=== PATIENT | female | born 1985 | race African-American/Black ===

== ENCOUNTER 2018-08-02 13:37 | Inpatient (IN) | payer OTHER ==
[2018-08-02] MEDS ORDERED: NS 1,000 ML IV ONE (13:54)
[2018-08-02] MEDS ORDERED: ONDANSETRON 4 MG/2 ML VIAL IVP ONE ×2 (13:54→15:49)
--- NOTE | 2018-08-02 13:55 | EDPHY ---
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 She remembers waking up on her hotel floor today. No incontinence. No oral trauma. No complaints of pain or discomfort beyond left lower quadrant abdominal pain. Denies vaginal bleeding or discharge. She does note decreased urine output. The last urinated 1 day ago. No left upper quadrant or left flank pain. No seasonal influenza vaccination PRIMARY CARE PROVIDER:In [place] REVIEW OF SYSTEMS: 10 systems reviewed and negative with the exception of the elements mentioned in the history of present illness PAST MEDICAL & SURGICAL HISTORY: no seasonal influenza vaccination. TAB 1 approximately 7-8 weeks based on LMP. SOCIAL HISTORY: Nonsmoker. PHYSICAL EXAM (Prior to examination, patient consented to physical exam, hands were washed and my usual and customary physical exam procedures followed) 1) GENERAL: Well-developed, well-nourished, alert and oriented. Appears anxious. She is retching. 2) HEAD: Normocephalic, atraumatic 3) HEENT: Pupils equal, round, reactive to light bilaterally. Sclera anicteric. Nasopharynx, oropharynx, clear, no lesions. Dry mucous membranes. 4) NECK: Full range of motion, no meningeal signs. 5) LUNGS: Clear auscultation bilaterally, no wheezes, no rhonchi, no retractions. 6) HEART: Regular rate and rhythm, no murmur, no heave, no gallop. 7) ABDOMEN: No guarding, tender to palpation left lower quadrant, negative peritoneal sign, no left upper quadrant pain, no splenomegaly, no left flank pain. 8) MUSCULOSKELETAL: Moving all extremities, no focal areas of tenderness, no obvious trauma. No peripheral edema or discoloration. 9) BACK: No CVA tenderness, no midline vertebral tenderness, no fluctuance, no step-off, no obvious trauma, no visual or palpable abnormality. 10) SKIN: No rash, no petechiae. 11) Psychiatric: Patient is oriented X 3, there is no agitation. DIFFERENTIAL DIAGNOSIS: In no particular order including but not limited to ectopic , hyperemesis gravidarum, threatened - Medical/Surgical History Hx Asthma: No Hx Chronic Respiratory Disease: No Hx Diabetes: No Hx Cardiac Disease: No Hx Renal Disease: No Hx Cirrhosis: No Hx Alcoholism: No Hx HIV/AIDS: No Hx Splenectomy or Spleen Trauma: No Other PMH: none - Social History Smoking Status: Former smoker Constitutional: Initial Vital Signs Temperature (C) 37 C 08/02/18 13:44 Heart Rate 89 08/02/18 13:44 Respiratory Rate 18 08/02/18 13:44 Blood Pressure 134/84 H 08/02/18 13:44 O2 Sat (%) 96 08/02/18 13:44 O2 Delivery Mode Room Air Allergies/Adverse Reactions: No Known Allergies Allergy (Verified 08/02/18 15:21) Home Medications: Medication Instructions Recorded NK [No Known Home Meds] 08/02/18 Medical Decision Making - Diagnostics Imaging Results: Imaging Impressions Obstetrics Ultrasound 08/02/18 13:54 Impression: Single living intrauterine gestation with estimated gestational age of 8 weeks 1 day. Findings discussed with Elmer Rowe 08/02/2018 at 15:01. Images reviewed myself ED Course/Re-evaluation: 3:35 p.m.: Patient was re-evaluated with serial exams. Has she has received 1500 cc of normal saline as well as 4 mg of Zofran. She has been unable provide urine. She complains of continued nausea, dizziness, lightheadedness. She and I discussed outpatient management. She prefers to be admitted noting that she does not feel safe going back to her hotel where she is by herself. Care of patient under supervision of secondary supervising physician Dr Olayinka Yu with whom I discussed case. 3:44 p.m.: Consultation with Dr Елена QUEZADA who will admit patient to mom baby floor for hyperemesis gravidarum. - Data Points Laboratory Results: Laboratory Results 08/02/18 14:28 08/02/18 14:28 08/02/18 08/02/18 08/02/18 14:28 14: 14:00 WBC 6.48 10^3/uL 10^3/uL (3.80-9.50) RBC 4.38 10^6/uL 10^6/uL (4.18-5.33) Hgb 13.7 g/dL g/dL (12.6-16.3) Hct 38.0 % % (38.0-47.0) MCV 86.8 fL fL (81.5-99.8) MCH 31.3 pg pg (27.9-34.1) MCHC 36.1 g/dL g/dL (32.4-36.7) RDW 12.1 % % (11.5-15.2) Plt Count 261 10^3/uL 10^3/uL (150-400) MPV 9.4 fL fL (8.7-11.7) Neut % (Auto) 81.0 % H % (39.3-74.2) Lymph % (Auto) 12.0 % L % (15.0-45.0) [place] % (Auto) 5.9 % % (4.5-13.0) Eos % (Auto) 0.2 % L % (0.6-7.6) Baso % (Auto) 0.6 % % (0.3-1.7) Nucleat RBC Rel Count 0.0 % % (0.0-0.2) Absolute Neuts (auto) 5.25 10^3/uL 10^3/uL (1.70-6.50) Absolute Lymphs (auto) 0.78 10^3/uL L 10^3/uL (1.00-3.00) Absolute Monos (auto) 0.38 10^3/uL 10^3/uL (0.30-0.80) Absolute Eos (auto) 0.01 10^3/uL L 10^3/uL (0.03-0.40) Absolute Basos (auto) 0.04 10^3/uL 10^3/uL (0.02-0.10) Absolute Nucleated RBC 0.00 10^3/uL 10^3/uL (0-0.01) Immature Gran % 0.3 % % (0.0-1.1) Immature Gran # 0.02 10^3/uL 10^3/uL (0.00-0.10) Sodium 140 mEq/L mEq/L (135-145) Potassium 3.2 mEq/L L mEq/L (3.5-5.2) Chloride 101 mEq/L mEq/L (97-110) Carbon Dioxide 24 mEq/l mEq/l (22-31) Anion Gap 15 mEq/L H mEq/L (6-14) BUN 14 mg/dL mg/dL (7-23) Creatinine 0.4 mg/dL L mg/dL (0.6-1.0) Estimated GFR > 60 Glucose 85 mg/dL mg/dL (70-100) Calcium 9.9 mg/dL mg/dL (8.5-10.4) Total Bilirubin 1.3 mg/dL mg/dL (0.1-1.4) Conjugated Bilirubin 0.4 mg/dL mg/dL (0.0-0.5) Unconjugated Bilirubin 0.9 mg/dL mg/dL (0.0-1.1) AST 28 IU/L IU/L (14-46) ALT 34 IU/L IU/L (9-52) Alkaline Phosphatase 70 IU/L IU/L (38-126) Total Protein 8.6 g/dL H g/dL (6.3-8.2) Albumin 5.0 g/dL g/dL (3.5-5.0) Lipase 16 IU/L L IU/L (23-300) Beta HCG, Quant 665043.00 mIU/mL H mIU/mL (0.00-4.83) Nasal Influenza A PCR NEGATIVE FOR FLU A (NEGATIVE) Nasal Influenza B PCR NEGATIVE FOR FLU B (NEGATIVE) Medications Given: Discontinued Medications Al Hydroxide/Mg Hydroxide (Maalox Susp) 30 ml PO ONCE ONE Stop: 08/02/18 15:46 Last Admin: 08/02/18 16:14 Dose: 30 ml Hyoscyamine Sulfate (Levsin, Hyomax-Sl) 0.25 mg PO ONCE ONE Stop: 08/02/18 15:46 Last Admin: 08/02/18 16:14 Dose: 0.25 mg Sodium Chloride (Ns) 1,000 mls @ 0 mls/hr IV ONCE ONE PRN Reason: Wide Open Stop: 08/02/18 13:55 Last Admin: 08/02/18 14:27 Dose: 1,000 mls Lidocaine (Lidocaine 2% Viscous) 15 ml PO ONCE ONE Stop: 08/02/18 15:46 Last Admin: 08/02/18 16:14 Dose: 15 ml Ondansetron HCl (Zofran) 4 mg IVP EDNOW ONE Stop: 08/02/18 13:55 Last Admin: 08/02/18 14:27 Dose: 4 mg Ondansetron HCl (Zofran) 4 mg IVP EDNOW ONE Stop: 08/02/18 15:50 Last Admin: 08/02/18 15:50 Dose: 4 mg Departure - Departure Disposition: [facility] Clinical Impression: Intractable nausea and vomiting Condition: Fair
[2018-08-02 14:39] LABS: PLATELET COUNT 261 10^3/uL (150-400)
--- NOTE | 2018-08-02 14:46 | CPEKG ---
Test Reason : OPEN Blood Pressure : / mmHG Vent. Rate : 085 BPM Atrial Rate : 085 BPM P-R Int : 160 ms QRS Dur : 104 ms QT Int : 379 ms P-R-T Axes : 077 057 -64 degrees QTc Int : 451 ms Sinus rhythm Nonspecific T abnormalities, inferior leads Confirmed by Leeanna Farley ([id number]) on 08/02/2018 2:46:06 PM Referred By: LEEANNA FARLEY Confirmed By:Leeanna Farley
[2018-08-02] MEDS ORDERED: HYOSCYAMINE SULFATE 0.125 MG TAB PO ONE (15:45)
[2018-08-02] MEDS ORDERED: LIDOCAINE 2% VISCOUS 15 ML UDCUP PO ONE (15:45)
[2018-08-02] MEDS ORDERED: MAG HYDROX/AL HYDROX/SIMETH 30 ML UDCUP PO ONE (15:45)
[2018-08-02] MEDS ORDERED: ONDANSETRON 4 MG/2 ML VIAL ONE (15:47)
[2018-08-02] MEDS ORDERED: PROMETHAZINE HCL 25 MG/ML INJ IVP ONE (19:04)
[2018-08-02] MEDS ORDERED: POTASSIUM Cl (KCl) 20 MEQ in LR 1,000 ML IV SCH (19:30)
[2018-08-02] MEDS: LR 1,000 ML IV SCH (19:44)
[2018-08-02] MEDS: PROMETHAZINE HCL 25 MG/ML INJ IVP PRN (19:44)
--- NOTE | 2018-08-02 20:28 | GHP ---
[f rep st] PREOP HISTORY AND PHYSICAL DATE OF ADMISSION: 08/02/2018 HISTORY UPON ADMISSION: The patient is a 33-year-old G5, P3, A1 at 8 weeks 1 day who presented to [facility] emergency room with persistent nausea and vomiting. The patient has had IV fluids and Phenergan an d continues to be persistent with the vomiting and is admitted for IV hydration and medication throug h the night. The patient's symptoms dramatically [place] . 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 The patient has be en staying at a hotel and has felt lightheaded and dizzy with near-syncope prior to coming to the [facility] room. Patient reports that she tried some pot from her sister to try to help with the nausea but felt it was mainly CBD and did not help at all. PAST MEDICAL HISTORY: Negative except for history of an ulcer years ago, and patient reports evaluat ions with an EGD in November of 2017, and she was told the ulcer had resolved. It was not H pylori conne cted. PAST SURGICAL HISTORY: Laparoscopy approximately 8 years ago at which time the patient was told she had endometriosis. D and C in 2016. PAST OBSTETRIC HISTORY: SVDs at term for 3 viable males, now ages 15, 13, and 6. Missed AB at 12 we eks in 2016. ALLERGIES: Patient has no known drug allergies. CURRENT MEDICATIONS: Patient was taking vitamins but has not had anything for the last 3 da ys due to the significant nausea and vomiting. SOCIAL HISTORY: The patient states that her kids are currently with her "until I get home." The patient is a former smoker and reports stopping 2 months ago. Reports having used 1 pack per da y. Patient denies alcohol or other drug use other than the recent marijuana. Patient states she did not smoke it, however, used a water soaked version. 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 Here from [place]. FAMILY HISTORY: Noncontributory. LABORATORY: Current laboratory evaluation shows a normal white count of 6.5, hemoglobin 13, hematocr it 38, platelet count 261,000. Chemistry reveals normal sodium, potassium slightly low at 3.2, creat inine 0.4, total protein 8.6, lipase 16. HCG level 108,000. Negative nasal flu A and B. no urine c ollected yet for urinalysis and culture or urine drug screen. IMAGING: Ultrasound performed that showed a normal uterus with a single intrauterine at 8 weeks 1 day with normal cardiac activity. Bilaterally, ovaries appear normal with possible cor pus luteum cyst on the left ovary, 2.6 cm. PHYSICAL EXAMINATION: GENERAL: Upon admission, the patient is a thin black female and curled up in bed and writhing with waves of nausea and throwing up bile. VITAL SIGNS: Blood pressure is 120s to 130s over 70s to 80s. Heart rate 89 to 95. Pulse ox is normal on room air. Temperature 37.3. LUNG S: Clear to auscultation bilaterally. CARDIOVASCULAR: Regular rate and rhythm. ABDOMEN: Soft and nontender. SKIN: Patient has tattoos but no other obvious scars or injuries. EXTREMITIES: No low er extremity edema. PELVIC: Deferred. ASSESSMENT: Intrauterine at 8 weeks with nausea and vomiting. Little improvement with IV fluids and Zofran in the emergency room. Potassium slightly low. PLAN: IV hydrate through the night and use Phenergan and Zofran for nausea. I advised the patient t hat the altitude and dryness of our climate are probably adding to her symptoms. The patient states that she doubts that she will stay here to continue and work as she feels so affected by the pregnanc y symptoms and will likely go back to [place]. [facility] reassess the potassium. /[id number]/MODL
[2018-08-03] MEDS: ONDANSETRON 4 MG/2 ML VIAL IVP PRN ×4 (00:36→18:28)
[2018-08-03] MEDS: LR 1,000 ML IV SCH ×2 (01:39→08:32)
[2018-08-03] MEDS: PROMETHAZINE HCL 25 MG/ML INJ IVP PRN ×2 (07:30→13:52)
--- NOTE | 2018-08-03 10:50 | SOAPPROG ---
SOAP Progress Note Assessment/Plan: Assessment: 33 y/o @ 8 2/7 weeks with n/v of and hypokalemia - not improved Plan: Will switch IVFs to D5 with 20meq of KCL since low potassium and pt is not able to keep down water Will repeat BMP in am 3/2 to check potassium Will add first line agents Vit B6 and Vistaril orally q6 hrs prn n/v and see if there is an improvement Cont IV Phenergan for now since some relief After nausea improved this morning, discussed trying ice chips to see if elisabeth po Will reassess this afternoon 08/03/18 11:09 Subjective: Pt seen and examined. She is not feeling much better. She last vomited around 0200 this am and had some water and was not able to keep it done around 0400 this am. She was nauseated this am, and has some relief with Phenergan that was given to her. Notes some mild cramping. She denies any pain, LOF or VB/ spotting. 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 Objective: Vital Signs Temp Pulse Resp BP Pulse Ox 36.4 C 82 14 97/58 L 97 08/03/18 07:44 08/03/18 07:44 08/03/18 07:44 08/03/18 07:44 08/03/18 07:44 Laboratory Results 08/03/18 05:50 08/02/18 08/03/18 08/04/18 05:59 05:59 05:59 Intake Total 1500 Balance 1500 Physical Exam - Physical Exam General Appearance: WD/WN, alert, no apparent distress Respiratory: lungs clear, normal breath sounds Cardiac/Chest: regular rate, rhythm Abdomen: normal bowel sounds, non-tender, soft Pelvic Exam: deferred Skin: normal color, warm/dry Neuro/Psych: alert, normal mood/affect, oriented x 3 ICD10 Worksheet Patient Problems: Problems Problem Status Onset Intractable nausea and vomiting Acute
[2018-08-03] MEDS ORDERED: D5W NS W/ 20 KCl/L 1,000 ML IV SCH (11:00)
[2018-08-03] MEDS: hydrOXYzine HCL 25 MG TAB PO PRN (12:19)
[2018-08-03] MEDS: PYRIDOXINE HCL 25 MG TAB PO PRN (12:19)
[2018-08-03] MEDS ORDERED: METOCLOPRAMIDE 10 MG/2 ML VIAL IVP SCH (15:30)
--- NOTE | 2018-08-03 16:03 | PDMN ---
Medical Necessity Medical necessity: MCG: M195 hyperemesis Gravidarum A-1 day: pt present with vomiting unable to keep PO down, status changed to INPT 08/03/18 for persistent N/V req further monitoring and tx > 2MN. pt is 8 weeks .
[2018-08-03] MEDS: METOCLOPRAMIDE 10 MG/2 ML VIAL IVP SCH (17:49)
[2018-08-03] MEDS: FAMOTIDINE 20 MG/NACL 50 ML IV SCH (18:10)
[2018-08-03] MEDS: D5W NS 1,000 ML IV SCH (19:23)
[2018-08-04] MEDS: METOCLOPRAMIDE 10 MG/2 ML VIAL IVP SCH ×3 (00:04→12:06)
[2018-08-04] MEDS: ONDANSETRON 4 MG/2 ML VIAL IVP PRN ×2 (02:21→18:15)
[2018-08-04] MEDS: D5W NS 1,000 ML IV SCH ×2 (02:21→10:58)
[2018-08-04] MEDS: FAMOTIDINE 20 MG/NACL 50 ML IV SCH (09:19)
--- NOTE | 2018-08-04 12:27 | SOAPPROG ---
SOAP Progress Note Assessment/Plan: Assessment: 33 y/o @ 8 2/7 weeks admitted with hyperemesis. Plan: We will advance to clear liquids for now and full liquids later. We will switch to po meds and try to d/c home tomorrow. 08/04/18 12:18 Subjective: Pt is feeling better today, but still significant nausea. She hasn't vomited since yesterday, but has only tolerated a clear liquid Boost drink. She still feel dizzy when ambulating. She feels that she needs to stay one more day at least, but she is anxious to return home to [place]. She is ready to try to switch to PO meds. Objective: Vital Signs Temp Pulse Resp BP Pulse Ox 36.9 C 88 16 121/76 H 96 08/04/18 08:46 08/04/18 08:46 08/04/18 08:46 08/04/18 08:46 08/04/18 08:46 Laboratory Results 08/04/18 05:45 08/03/18 08/04/18 08/05/18 05:59 05:59 05:59 Intake Total 1165 Output Total 1550 1000 Balance -385 -1000 - Pending Discharge Pending Discharge Within 24 Hours: Yes Pending Discharge Date: 08/05/18 Pending Discharge Time: 11:00 Physical Exam - Physical Exam General Appearance: WD/WN, alert, no apparent distress Neck: non-tender, full range of motion, supple Respiratory: chest non-tender, lungs clear, normal breath sounds Cardiac/Chest: regular rate, rhythm Abdomen: normal bowel sounds, non-tender ICD10 Worksheet Patient Problems: Problems Problem Status Onset Intractable nausea and vomiting Acute
[2018-08-04] MEDS: METOCLOPRAMIDE 10 MG TAB PO SCH ×2 (16:00→21:57)
[2018-08-04] MEDS: FAMOTIDINE 20 MG TAB PO SCH (19:59)
[2018-08-04] MEDS ORDERED: PSEUDOEPHEDRINE HCL 30 MG TAB PO PRN (21:28)
[2018-08-04] MEDS: CETIRIZINE 10 MG TAB PO SCH (21:57)
[2018-08-04] MEDS: hydrOXYzine HCL 25 MG TAB PO PRN (21:57)
[2018-08-04] MEDS: PYRIDOXINE HCL 25 MG TAB PO PRN (21:57)
[2018-08-05] MEDS: D5W NS 1,000 ML IV SCH (02:39)
[2018-08-05] MEDS: METOCLOPRAMIDE 10 MG TAB PO SCH (06:25)
[2018-08-05] MEDS: hydrOXYzine HCL 25 MG TAB PO PRN (06:37)
[2018-08-05] MEDS: PYRIDOXINE HCL 25 MG TAB PO PRN (06:37)
[2018-08-05] MEDS: FAMOTIDINE 20 MG TAB PO SCH (09:44)
[2018-08-05] MEDS: CETIRIZINE 10 MG TAB PO SCH (09:44)
[2018-08-05 10:02] VITALS: BP 122/79
--- NOTE | 2018-08-05 10:32 | SOAPPROG ---
NOEMI Progress Note Assessment/Plan: Assessment: 33 y/o @ 8 4/7 weeks with n/v of - improved HD #3 Hypokalemia - s/p repletion by IVFs; still slightly low Plan: Plan for d/c home today; pt plans to fly back to [place] on 08/07 Instructions reviewed with pt - small, frequent meals Continut Vitamin B6 and Unisom OTC Rx given for Zofran ODT Pt to f/u with Ob at home in [place] next week 08/05/18 10:37 Subjective: Pt seen and examined. She feels so much better this morning. She has not vomited x 24 hours now and has much less nausea. She is eating breakfast now and elisabeth diet. No other complaints. Ready to be discharged today. Objective: Vital Signs Temp Pulse Resp BP Pulse Ox 36.7 C 88 16 122/79 H 97 08/05/18 08:00 08/05/18 08:00 08/05/18 08:00 08/05/18 08:00 08/05/18 02:37 Laboratory Results 08/04/18 05:45 08/04/18 08/05/18 08/06/18 05:59 05:59 05:59 Intake Total 1165 2500 Output Total 1550 1900 Balance -385 600 Physical Exam - Physical Exam General Appearance: WD/WN, alert, no apparent distress Abdomen: non-tender, soft Pelvic Exam: deferred Skin: normal color, warm/dry Neuro/Psych: alert, normal mood/affect, oriented x 3 ICD10 Worksheet Patient Problems: Problems Problem Status Onset Intractable nausea and vomiting Acute
== END 2018-08-05 12:06 | disposition home or self-care (01) | DRG 833 ==
LOC: FOB 17:03 → OBSVTOIN 08-03 15:53
PROVIDERS: ADMIT Obstetrics & Gynecology; ATTEND Obstetrics & Gynecology
DX: O21.1 Hyperemesis gravidarum with metabolic disturbance (principal); Z3A.08 8 weeks gestation of pregnancy; Z87.891 Personal history of nicotine dependence
CPT/HCPCS: 80307; 96374; G0378; G0480; J2405; J2550; J2765